=== PATIENT | female | born 1940 | race Caucasian/White ===

== ENCOUNTER 2023-06-09 16:11 | Observation (INO) | payer MEDICARE, SELFPAY ==
[2023-06-09] VITALS (10 sets, daily range): BP systolic 153–171; BP diastolic 53–92; PULSE 67–74; RESP 13–18; TEMP 36.6–36.7; O2SAT 9–100; BMI 24.5
--- NOTE | ~2023-06-09 | CT_ITS ---
EXAMINATION: CT brain wo con DATE: 06/09/2023 17:24 INDICATION: trauma . TECHNIQUE: Computed tomography (CT) of the head was performed without intravenous contrast. The mA wa s adjusted according to patient size. Iterative reconstruction technique was employed. The dose-lengt h product was 605.33 mGy-cm. COMPARISON: None. FINDINGS: No acute intracranial hemorrhage or extra-axial fluid collection. No hydrocephalus, mass, or herniation. No acute ischemic infarct. Unremarkable dural venous sinus attenuation. No acute osseous abnormality. The aerated spaces are clear. Mild atrophy and chronic white matter change. Atherosclerotic intracranial calcification. Bilateral b carlos ganglia calcification. Bilateral lens replacements. IMPRESSION: No acute intracranial process. Reviewed, dictated and finalized at location K.
--- NOTE | ~2023-06-09 | MR_ITS ---
EXAMINATION: MR cervical spine wo con DATE: 06/10/2023 11:14 INDICATION: Hyperextension neck injury. Hand numbness. TECHNIQUE: Magnetic resonance imaging (MRI) of the cervical spine was performed without intravenous c ontrast. Sequences included sagittal T2-weighted FSE, sagittal T2-weighted FS FSE, sagittal T1-weight ed FSE, axial MERGE, and axial T2-weighted FSE. COMPARISON: CT cervical spine 06/09/2023 FINDINGS: There is 5 degrees levocurvature of cervicothoracic spine. There is 2 mm retrolisthesis of C3 on C4, C4 on C5, and C5 on C6. Vertebral body heights are normal. There is moderately decreased di sc height at C3-C4 and C4-C5, severely decreased disc height at C5-C6, and mildly decreased disc heig ht at C6-C7 with endplate remodeling. There is increased T2-weighted signal intensity in the cord at C3-C4 and C4-C5, consistent with myelomalacia. The following disc levels are specifically discussed: C2-C3: The disc does not extend beyond the endplate margin. There is no uncovertebral joint osteoarth ritis. There is severe bilateral facet joint osteoarthritis. There is mild right neural foraminal fide nosis. There is no central canal stenosis. C3-C4: The disc is bulging. There is moderate right and severe left uncovertebral joint osteoarthriti s. There is moderate and mild left facet joint osteoarthritis. There is mild right and moderate left neural foraminal stenosis. There is moderate central canal stenosis with ventral and dorsal indentati on of the spinal cord. C4-C5: The disc is bulging. There is severe bilateral uncovertebral joint osteoarthritis. There is mi ld right and moderate left facet joint osteoarthritis. There is moderate bilateral neural foraminal s tenosis. There is severe central canal stenosis with ventral and dorsal indentation of the spinal cor d. C5-C6: The disc is bulging. There is severe bilateral uncovertebral joint osteoarthritis. There is mi ld bilateral facet joint osteoarthritis. There is moderate bilateral neural foraminal stenosis. There is severe central canal stenosis with ventral and dorsal indentation of the spinal cord. C6-C7: There is a right central extrusion. There is severe right and mild left uncovertebral joint os teoarthritis. There is mild right facet joint osteoarthritis. There is mild bilateral neural foramina l stenosis. There is mild central canal stenosis with ventral indentation of the spinal cord. C7-T1: There is a central extrusion. There is no uncovertebral joint osteoarthritis. There is severe bilateral facet joint osteoarthritis. There is mild bilateral neural foraminal stenosis. There is no central canal stenosis. IMPRESSION: 1. 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 2. Severe cervical spondylosis. Reviewed, dictated and finalized at location L.
--- NOTE | ~2023-06-09 | CT_ITS ---
EXAMINATION: CT cervical spine wo con DATE: 06/09/2023 17:25 INDICATION: trauma, hand tingling TECHNIQUE: Computed tomography (CT) of the cervical spine was performed without intravenous contrast. Automated exposure control and iterative reconstruction technique were employed. The dose-length pro duct was 192.25 mGy-cm. COMPARISON: None. FINDINGS: Vertebral Body Alignment: Intact. Craniocervical and atlantoaxial alignment: Moderate degenerative change. Alignment intact. Osseous structures/fracture: No evidence of a lytic or blastic process in the visualized spine. No e vidence of acute fracture. Cervical soft tissues: The paraspinal soft tissues planes are maintained. Biapical scarring. Mild int erstitial edema. Degenerative changes: Multilevel moderate degenerative disc disease and facet arthropathy. Multilevel moderate bilateral neural foraminal narrowing. Moderate central canal narrowing at C4-5 and C5-6. IMPRESSION: No acute fracture or traumatic malalignment in the cervical spine. Reviewed, dictated and finalized at location K.
[2023-06-09 17:18] LABS: Basophils Absolute Auto 0.1 K/mm3 (0.0-0.1); Basophils Percent Auto 1.1 % (0.2-1.2); Eosinophils Absolute Auto 0.2 K/mm3 (0-0.3); Hematocrit 46.2 % (37.0-47.0); Hemoglobin 15.3 g/dL (12.0-15.0); Immature Granulocyte Absolute 0.03 K/mm3 (0.00-0.031); Immature Granulocyte Percent A 0.5 % (0-0.5); Lymphocytes Absolute Auto 1.46 K/mm3 (0.9-3.2); Mean Corpuscular HGB Conc 33.1 g/dl (32-36); Mean Corpuscular Hemoglobin 30.1 pg (26-34); Mean Corpuscular Volume 90.9 fl (80-100); Mean Platelet Volume 10.4 fl (7.4-10.4); Monocytes Absolute Auto 0.5 K/mm3 (0.1-0.6); Monocytes Percent Auto 8.1 % (2.6-8.5); Neutrophils Absolute Auto 4.3 K/mm3 (1.3-6.7); Neutrophils Percent Auto 65.3 % (45.5-73.1); Platelet Count Result 190 k/mm3 (150-375); Red Blood Count 5.08 M/mm3 (4.2-5.4); Red Cell Distribution Width 13.2 % (11.5-14.5); White Blood Count 6.6 K/mm3 (4.5-10.0)
[2023-06-09] MEDS: TETANUS,DIPHTHERIA,AC PERTUSSIS ADULT (0.5 ML) BOOSTRIX IM (17:25)
[2023-06-09 17:28] LABS: Partial Thromboplastin Time 29.7 SECONDS (22.3-36.8); Prothrombin Time 13.5 Seconds (11.1-14.7)
[2023-06-09 17:30] LABS: Alanine Aminotransferase 30 U/L (6-35); Albumin Level 4.3 g/dL (3.5-5.1); Alkaline Phosphatase 115 U/L (38-126); Anion Gap 8 mmol/L (8-16); Aspartate Amino Transferase 40 U/L (14-36); Bilirubin,Total 0.6 mg/dL (0.2-1.3); Blood Urea Nitrogen 15 mg/dL (7-17); Calcium 9.4 mg/dL (8.4-10.2); Carbon Dioxide 27 mmol/L (22-30); Chloride 104 mmol/L (98-107); Estimated CRCL calculation 46 ml/min; Estimated Glomerular Filt Rate > 60; Glucose 110 mg/dL (65-110); Potassium 4.3 mmol/L (3.4-5.0); Sodium 139 mmol/L (137-145)
--- NOTE | 2023-06-09 17:56 | ED.FALL ---
HPI - Fall General Chief Complaint: Fall <Colt Larson MD - Last Filed: 06/09/23 19:17> Stated Complaint: fall <Colt Larson MD - Last Filed: 06/09/23 19:17> Time Seen by Provider: 06/09/23 16:37 <Colt Larson MD - Last Filed: 06/09/23 19:17> History of Present Illness HPI Narrative: Patient is an 82-year-old female who presents ER after falling and striking her head against her home. She was doing a food exchange with a neighbor when she tripped and fell striking her head. She hyperextended her neck. She developed some neck pain but did not lose consciousness. She is not on any blood thinners. She reports some tingling to her hands bilaterally. No other numbness or tingling. She has no weakness in her hands or arms. Brought in by EMS. She has laceration under her right eye and to the lateral aspect of the supraorbital ridge. Unknown last tetanus shot. <Colt Larson MD - Last Filed: 06/09/23 19:17> Related Data Allergies/Adverse Reactions: Allergies Allergy/AdvReac Type Severity Reaction Status Date / Time No Known Allergies Allergy Unverified 02/11/12 14:43 WASP Allergy Uncoded 02/11/12 14:43 <Colt Larson MD - Last Filed: 06/09/23 19:17> Review of Systems Review of Systems: All systems reviewed & are unremarkable except as noted in HPI and below <Colt Larosn MD - Last Filed: 06/09/23 19:17> Constitutional: Constitutional: Denies chills, Denies fatigue and Denies fever(s) <Colt Larson MD - Last Filed: 06/09/23 19:17> ENT: Denies nasal congestion and Denies sore throat <Colt Larson MD - Last Filed: 06/09/23 19:17> Cardiovascular: Cardiovascular: Denies chest pain and Denies rapid heart rate <Colt Larson MD - Last Filed: 06/09/23 19:17> Respiratory: Respiratory: Denies cough, Denies dyspnea and Denies wheezing <Colt Larson MD - Last Filed: 06/09/23 19:17> Gastrointestinal: Gastrointestinal: Denies abdominal pain, Denies nausea and Denies vomiting <Colt Larson MD - Last Filed: 06/09/23 19:17> Musculoskeletal: Musculoskeletal: Denies arthralgias and Denies joint swelling <Colt Larson MD - Last Filed: 06/09/23 19:17> Integumentary/Breasts: Skin/Breast: Denies erythema and Denies rash <Colt Larson MD - Last Filed: 06/09/23 19:17> Comments: +Laceration <Colt Larson MD - Last Filed: 06/09/23 19:17> Neurologic: Denies syncope, Denies headache(s), Denies focal weakness and Reports numbness <Colt Larson MD - Last Filed: 06/09/23 19:17> PMF Past Medical History Medical History: Medical History (Updated 06/09/23 @ 18:29 by Colt Larson MD) Hypertension Kidney stones <Colt Larson MD - Last Filed: 06/09/23 19:17> Surgical History Surgical History: Surgical History (Updated 06/09/23 @ 17:58 by Colt Larson MD) History of knee surgery <Colt Larson MD - Last Filed: 06/09/23 19:17> Exam Narrative: GENERAL: Well-appearing, well-nourished, and in no acute distress. HEAD: Normocephalic, atraumatic. EYES: PERRL and EOMI. ENT: Mucous membranes moist. 1.5 laceration beneath the right eye and 3 cm laceration lateral to the right eye. NECK: C-spine immobilized. No midline tenderness. CHEST: Clear to auscultation. No respiratory distress. HEART: Regular rate and rhythm. Normal peripheral pulses. ABDOMEN: Soft, nontender, nondistended. EXTREMITIES: Normal range of motion. No edema. SKIN: Warm, dry, no rash. NEURO: Alert and oriented x3. Initially some decreased sharp touch in the hands but on reevaluation with a 18-gauge needle patient has equal sensation in the hands and forearms. PSYCH: Normal mood and affect. <Colt Larson MD - Last Filed: 08/02/23 19:17> Course Course Emergency Course: Discussed case with neurosurgery. Patient has had improvement of her sensation in her hands. Recommendations paced patient
[2023-06-09] MEDS: LIDOCAINE HCL 1% LOCAL INJ 10 ML VIAL (18:10)
[2023-06-09] MEDS: LORazepam INJ (*CRX) 2 MG/ML VIAL (18:42)
--- NOTE | 2023-06-09 19:18 | PM.IMHP ---
H&P: HPI History of Present Illness Date/Time: 06/09/23 19:18 Chief Complaint: Bilateral hand numbness Narrative: This is an 82-year-old female patient who appears younger than stated age. She has a history of hypertension. The patient had a fall and struck her head against her home which is break. She was doing a food exchange with a neighbor when she tripped and fell and she struck her head. The patient had 6 sutures to right brow area and 3 under her right eye. Patient denies any visual disturbances. The patient complains of some numbness and tingling to her hands at times. Otherwise she is able to move all extremities. Head CT was read as no acute intracranial process. Cervical spine CT was read as no acute fracture traumatic malalignment in the cervical spine. Head CT no acute intracranial process. The patient was given a tetanus shot and Ativan in the emergency room. Dr. Serrano was consulted and recommended that the patient be placed in a cervical collar and of be followed with an MRI in the morning. The patient is being admitted to observation status on the date of service of 06/09/2020 Review of Systems Review of Systems: All systems reviewed & are unremarkable except as noted in HPI and below Constitutional: Constitutional: Reports as per HPI and Reports no additional constitutional complaints Eyes: Eyes: Reports as per HPI and Reports no additional eye complaints ENT: Reports system reviewed and no additional complaints, except as documented and Reports Normal hearing present Cardiovascular: Cardiovascular: Reports no additional cardiovascular complaints Respiratory: Respiratory: Reports no additional respiratory complaints and Reports no additional respiratory complaints Gastrointestinal: Gastrointestinal: Reports as per HPI and Reports no additional gastrointestinal complaints Musculoskeletal: Musculoskeletal: Reports no additional musculoskeletal complaints Integumentary/Breasts: Skin/Breast: Reports system reviewed and no additional complaints, except as docu and Reports as per HPI Neurologic: Reports system reviewed and no additional complaints, except as documented, Reports as per HPI and Reports Normal hearing present Psychiatric: Psychiatric: Reports no additional psychiatric complaints and Reports as per HPI Endocrine: Endocrine: Reports no additional endocrine complaints Hematologic/Lymphatic: Hematologic/Lymphatic: Reports no additional hematologic/lymphatic complaints Allergic/Immunologic: Allergic/Immunologic: Reports no additional allergic/immunologic complaints [facility] Past Medical History Medical History (Updated 06/09/23 @ 23:01 by Susan Abdullahi NP) Hypertension Kidney stones Surgical History Surgical History History of knee surgery Family History Family History (Updated 06/09/23 @ 22:56 by Susan Abdullahi NP) Unknown No problems noted. Social History Social History (Updated 06/09/23 @ 22:57 by Susan Abdullahi NP) Social History: She has a significant other and has 1 daughter. 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 The patient is lifelong nonsmoker. Code status full code Smoking status: Never smoker Alcohol intake: former Substance use: never Substance use type: does not use Lack of Transportation: No Lack of Food: Never True Current Housing: I Have Housing Concerned About Future Housing: No Difficulty Paying Gas/Electric Bills: No Difficulty Paying for Meds: No Currently Unemployed: No Education: Master's Degree or Higher Difficulty w/ Childcare or Family Care: No Spiritual care concerns: No Comments she lives with her significant other. one daughter . . she does interior design . life long non smoker rarely drinks daughter is poa full code Meds Home Medications and Allergies Home Medications Medication Instructions Luis
--- NOTE | 2023-06-09 22:00 | ADMGEN ---
This patient, Analisa Botello, was admitted to [facility] Surg Room 325-02. Patient/family oriented to hospital policies and general routines including ID bracelet, bed and alarms, visiting hours, pain management, procedures, bathroom and other care routines, personal items, smoking policy, room service/diet, and visiting hours. Information on how to activate the Rapid Response Team has been discussed. Patient/Family are encouraged to report perceived risks to care and to ask questions if they do not understand what they are told or what they should do.
[2023-06-10] VITALS: PULSE 64
[2023-06-10] MEDS: HYDROcodone/acetaminophen (*CRX) 5-325 MG TABLET 1 TAB PO ×2 (00:47→05:24)
[2023-06-10 04:00] VITALS: PULSE 52
[2023-06-10 06:00] VITALS: BP 141/58; PULSE 61; RESP 14; TEMP 36.1; O2SAT 98
[2023-06-10 07:27] LABS: Basophils Absolute Auto 0.1 K/mm3 (0.0-0.1); Basophils Percent Auto 0.7 % (0.2-1.2); Eosinophils Absolute Auto 0.2 K/mm3 (0-0.3); Eosinophils Percent Auto 2.5 % (0-4.4); Hematocrit 43.1 % (37.0-47.0); Hemoglobin 13.9 g/dL (12.0-15.0); Immature Granulocyte Absolute 0.02 K/mm3 (0.00-0.031); Immature Granulocyte Percent A 0.3 % (0-0.5); Lymphocytes Absolute Auto 2.02 K/mm3 (0.9-3.2); Lymphocytes Percent Auto 26.6 % (18.3-44.2); Mean Corpuscular HGB Conc 32.3 g/dl (32-36); Mean Corpuscular Hemoglobin 29.9 pg (26-34); Mean Corpuscular Volume 92.7 fl (80-100); Mean Platelet Volume 10.1 fl (7.4-10.4); Monocytes Absolute Auto 0.8 K/mm3 (0.1-0.6); Monocytes Percent Auto 10.1 % (2.6-8.5); Neutrophils Absolute Auto 4.5 K/mm3 (1.3-6.7); Neutrophils Percent Auto 59.8 % (45.5-73.1); Platelet Count Result 167 k/mm3 (150-375); Red Blood Count 4.65 M/mm3 (4.2-5.4); Red Cell Distribution Width 13.4 % (11.5-14.5); White Blood Count 7.6 K/mm3 (4.5-10.0)
[2023-06-10 07:47] LABS: Alanine Aminotransferase 27 U/L (6-35); Albumin Level 3.4 g/dL (3.5-5.1); Alkaline Phosphatase 75 U/L (38-126); Anion Gap 3 mmol/L (8-16); Aspartate Amino Transferase 41 U/L (14-36); Bilirubin,Total 0.5 mg/dL (0.2-1.3); Blood Urea Nitrogen 12 mg/dL (7-17); Calcium 8.4 mg/dL (8.4-10.2); Carbon Dioxide 29 mmol/L (22-30); Chloride 106 mmol/L (98-107); Estimated CRCL calculation 55 ml/min; Estimated Glomerular Filt Rate > 60; Glucose 95 mg/dL (65-110); Magnesium 1.9 mg/dL (1.6-2.3); Potassium 3.9 mmol/L (3.4-5.0); Sodium 138 mmol/L (137-145)
[2023-06-10 08:00] VITALS: PULSE 51
[2023-06-10] MEDS: LOSARTAN POTASSIUM 100 MG TABLET PO (08:09)
[2023-06-10] MEDS: LORazepam INJ (*CRX) 2 MG/ML VIAL 1 MG IV PUSH (10:25)
[2023-06-10 12:00] VITALS: PULSE 64
--- NOTE | 2023-06-10 12:50 | WPDNEUROSGCN ---
Assessment and Plan Assessment and plan (1) Cervical stenosis of spinal canal: Code(s): M48.02 - Spinal stenosis, cervical region Status: Acute Plan Ms. Botello is an 83-year-old female with history of hypertension who presented to the ER yesterday after a mechanical fall in which she hyperextended her neck and developed some neck pain and paresthesias into her hands. These symptoms have resolved. She does not report any signs or symptoms of cervical myelopathy at side of this episode yesterday aside from perhaps some balance issues which have been longstanding for her. On physical exam, she has good strength, normal sensation, and no signs hyper reflexia or abnormal reflexes. Her MRI cervical spine does show severe stenosis from C 4 through C7 with spinal cord compression most notably at C4-5 and C5-6. There are a couple areas concerning for myelomalacia within her spinal cord at C3-4 and C4-5. I discussed the results of this imaging with her. We discussed that there is theoretically a risk of her developing is severe spinal cord injury if she were to have another fall and injure her neck. However, given that she has no signs or symptoms of cervical myelopathy at this time, I have a hard time justifying the need to do surgery on her at this point. I would like to follow her closely to watch for any development of these symptoms, and we did discuss in detail multiple times with the symptoms would include. I will include this information into her discharge paperwork as well. We did briefly discuss what surgery would entail if it were to become necessary. I do not think that she requires a cervical collar any longer. She is cleared to mobilize from my standpoint. Assuming that she is able to mobilize without difficulty, I think that she could discharge home from my standpoint. I will arrange for follow-up in clinic in the next couple months. She understands to call me if she develops any of the symptoms discussed prior to her follow-up. Plan: -Ok to remove cervical collar and to mobilize -No surgical intervention needed at this time, but she should notify me if she develops any signs or symptoms of cervical myelopathy -I will arrange for outpatient follow up with me in clinic Consult date: 06/10/23 HPI: Analisa Botello is a 83 year old female with history of hypertension who presented to the emergency room last night after a mechanical fall with neck pain and paresthesias into her hands. The patient was taking food to her neighbor when she tripped on an uneven surface on the sidewalk and fell and hit her head. She sustained a couple lacerations around her right eye but did not lose consciousness. While in the emergency room last night, the paresthesias in her hands resolved. She feels generally weak and stiff since her fall but has not yet been up out of bed to walk. Prior to this incident yesterday, she denies any issues with neck pain, radicular pain or paresthesias into arms or legs, weakness in her arms or legs, or falls. She does report a long standing history of balance issues. She drinks a large amount water per day due to having a kidney stone, and occasionally if she drinks too much water close to bedtime, she does not get to bathroom during the night in time. She states this has been the case for many years, and she denies any issues incontinence during the day. She is otherwise a very active person. 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 She is otherwise healthy and denies any blood thinner use. Review of Systems Review of Systems: All systems reviewed & are unremarkable except as noted in HPI and below PMFSH Past Medical History Medical History (Updated 06/10/23 @ 12:57 by Brie Serrano MD) Hypertension Kidney stones Surgical History Surgical History History of knee surgery Family History Family History (Updated 06/09/23 @ 22:56 by Susan Connolly
[2023-06-10 14:00] VITALS: BP 146/62; PULSE 60; RESP 16; TEMP 36.4; O2SAT 98
--- NOTE | 2023-06-10 15:02 | WPDPN ---
Progress Note: A&P Assessment and Plan (1) Bilateral hand numbness: Code(s): R20.0 - Anesthesia of skin Status: Acute Assessment and Plan: Head CT 06/09/23 17:27 IMPRESSION: No acute intracranial process. Cervical Spine CT 06/09/23 17:32 IMPRESSION: No acute fracture or traumatic malalignment in the cervical spine Neuro surgery has been consulted. Neuro checks every 4 hours. The patient has no neurological deficits at this time. Patient will receive an MRI tomorrow. The patient is to remain in bed during the night on bedrest and we will get an MR tomorrow. She needs to remain in her cervical collar all night. Continue with analgesics. 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 2. Severe cervical spondylosis. Patient was seen by spine surgery suggested to remove neck collar and does not need any surgical evaluation, and will follow up as an outpatient, will have PT/OT evaluate the patient, once clinically stable, will discharge tomorrow. (2) Hypertension: Code(s): I10 - Essential (primary) hypertension Status: Acute Assessment and Plan: Continue with losartan (3) Face lacerations: Code(s): S01.81XA - Laceration without foreign body of other part of head, initial encounter Status: Acute Assessment and Plan: The patient has 9 sutures periorbital Subjective Date/time seen: 06/10/23 15:02 Interval history: Chief Complaint: Bilateral hand numbness Narrative: This is an 82-year-old female patient who appears younger than stated age.? She has a history of hypertension.? The patient had a fall and struck her head against her home which is break.? She was doing a food exchange with a neighbor when she tripped and fell and she struck her head.? The patient had 6 sutures to right brow area and 3 under her right eye.? Patient denies any visual disturbances.? The patient complains of some numbness and tingling to her hands at times.? Otherwise she is able to move all extremities.? Head CT was read as no acute intracranial process.? Cervical spine CT was read as no acute fracture traumatic malalignment in the cervical spine.? Head CT no acute intracranial process.? The patient was given a tetanus shot and Ativan in the emergency room.? Dr. Serrano was consulted and recommended that the patient be placed in a cervical collar and of be followed with an MRI in the morning.?? 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 2. Severe cervical spondylosis. Patient was seen by spine surgery suggested to remove neck collar and does not need any surgical evaluation, and will follow up as an outpatient, will have PT/OT evaluate the patient, once clinically stable, will discharge tomorrow. Review of Systems Review of Systems: All systems reviewed & are unremarkable except as noted in HPI and below Exam Narrative: Patient is comfortable, NAD HEENT: eyes are clear and none icteric bruising along bilateral orbits neck collar in place LUNGS: Normal respiratory effort ABD: Not distended Lower extremities: no edema SKIN: nonjaundiced Neuro: grossly intact. Objective Data Vital Signs Vital Signs: Vital Signs - 24 hr 06/09/23 16:19 06/09/23 16:35 06/09/23 16:46
--- NOTE | 2023-06-10 15:29 | PM.DS ---
DS: Admitting Diagnosis Discharge Date 06/10/2023 Admitting Diagnosis Bilateral hand numbness DS: Discharge Diagnosis Discharge Diagnosis (1) Bilateral hand numbness: Code(s): R20.0 - Anesthesia of skin Status: Acute Assessment and Plan: Head CT 06/09/23 17:27 IMPRESSION: No acute intracranial process. Cervical Spine CT 06/09/23 17:32 IMPRESSION: No acute fracture or traumatic malalignment in the cervical spine Neuro surgery has been consulted. Neuro checks every 4 hours. The patient has no neurological deficits at this time. Patient will receive an MRI tomorrow. The patient is to remain in bed during the night on bedrest and we will get an MR tomorrow. She needs to remain in her cervical collar all night. Continue with analgesics. 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 2. Severe cervical spondylosis. Patient was seen by spine surgery suggested to remove neck collar and does not need any surgical evaluation, and will follow up as an outpatient, will have PT/OT evaluate the patient, once clinically stable, will discharge tomorrow. (2) Hypertension: Code(s): I10 - Essential (primary) hypertension Status: Acute Assessment and Plan: Continue with losartan (3) Face lacerations: Code(s): S01.81XA - Laceration without foreign body of other part of head, initial encounter Status: Acute Assessment and Plan: The patient has 9 sutures periorbital DS: Summary Hospital Course Reason for hospitalization: Bilateral hand numbness Narrative: This is an 82-year-old female patient who appears younger than stated age.? She has a history of hypertension.? The patient had a fall and struck her head against her home which is break.? She was doing a food exchange with a neighbor when she tripped and fell and she struck her head.? The patient had 6 sutures to right brow area and 3 under her right eye.? Patient denies any visual disturbances.? The patient complains of some numbness and tingling to her hands at times.? Otherwise she is able to move all extremities.? Head CT was read as no acute intracranial process.? Cervical spine CT was read as no acute fracture traumatic malalignment in the cervical spine.? Head CT no acute intracranial process.? The patient was given a tetanus shot and Ativan in the emergency room.? Dr. Serrano was consulted and recommended that the patient be placed in a cervical collar and of be followed with an MRI in the morning.? The patient is being admitted to observation status on the date of service of 06/09/2020 Hospital Course: ?patient stats while rushing to get into her house she ran into steps in front of home and fell stricking her head, patient denies any c/o dizziness, CP, shortness of breath, or palpitation, most likely patient had a mechanical fall, CT scan of head no acute injury similarly MRI of cervical spine did not show any acute bony injury it showed?Myelomalacia at C3-C4 and C4-C5. 2. Severe cervical spondylosis. Patient was seen by spine surgery suggested? to remove neck collar and does not need any surgical evaluation, and will follow up as an outpatient, will have PT/OT evaluate the patient, once clinically stable, will discharge tomorrow. Patient is clinically stable, will discharge patient today. Time Spent with Patient Time attestation: Total time spent providing and/or coordinating discharge services: Exam Narrative: Patient is comfortable, NAD HEENT: eyes are clear and none icteric bruising along bilateral orbits neck collar in place LUNGS: Normal respiratory effort
--- NOTE | 2023-06-29 15:34 | PC.NURSE ---
LATE ENTRY This note is being entered to document information to the patient's record. The following information was omitted on [06/29/23], by [Maria T Ibrahim Pt was placed in [facility] Regular collar, ordered by Dr. Larson].
== END 2023-06-10 16:05 | disposition home or self-care (01) ==
LOC: ANHED 18:29 → ANH3MEDSUR 19:00
PROVIDERS: Nurse Practitioner; Admitting Provider Family Medicine; Emergency Provider Emergency Medicine; PCP Internal Medicine; Visit Provider Family Medicine
DX: S01.81XA Laceration without foreign body of other part of head, initial encounter (principal); S19.80XA Other specified injuries of unspecified part of neck, initial encounter; W01.198A Fall on same level from slipping, tripping and stumbling with subsequent striking against other object, initial encounter; Y92.008 Other place in unspecified non-institutional (private) residence as the place of occurrence of the external cause; Z23 Encounter for immunization; G95.89 Other specified diseases of spinal cord; M48.02 Spinal stenosis, cervical region; M47.812 Spondylosis without myelopathy or radiculopathy, cervical region; I10 Essential (primary) hypertension; Z79.899 Other long term (current) drug therapy
CPT/HCPCS: 12013; 36415; 70450; 72125; 72141; 80053; 83735; 85025; 85610; 85730; 90471; 90715; 96374; 96376; 99285; A9270; G0378; J2060; L0140